=== PATIENT | female | born 1935 | race Caucasian/White ===

== ENCOUNTER 2022-05-20 14:00 | Inpatient (IN) | payer OTHER ==
[~2022-05-20] VITALS: Ht 162.6 cm; Wt 62.1 kg
[2022-05-20] MEDS ORDERED: KAPSPARGO SPRIN25 MG PO (14:50)
[2022-05-20] MEDS ORDERED: ZOLOFT20 MG/1 ML PO (14:50)
[2022-05-20] MEDS ORDERED: LIPITOR40 M1 PO (14:50)
[2022-05-20] MEDS ORDERED: CALCIUM500 M1 PO (14:51)
[2022-05-20] MEDS ORDERED: CHILDREN'S ASPI81 MG PO (14:51)
[2022-05-20] MEDS ORDERED: RENVELA0.8 GM PO (14:51)
== END 2022-05-27 17:29 | disposition home or self-care (01) | DRG 812 ==
LOC: ER 14:00 → MEDJ 05-21 00:50
PROVIDERS: ADMIT Internal Medicine; ATTEND Internal Medicine
PROC: BW21Y0Z Computerized Tomography (CT Scan) of Abdomen and Pelvis using Other Contrast, Unenhanced and Enhanced (ICD-10-PCS; 2022-05-20)
PROC: 5A1D70Z Performance of Urinary Filtration, Intermittent, Less than 6 Hours Per Day (ICD-10-PCS; 2022-05-21)
PROC: 5A1D70Z Performance of Urinary Filtration, Intermittent, Less than 6 Hours Per Day (ICD-10-PCS; 2022-05-24)
PROC: 30233N1 Transfusion of Nonautologous Red Blood Cells into Peripheral Vein, Percutaneous Approach (ICD-10-PCS; principal; 2022-05-26)
PROC: 5A1D70Z Performance of Urinary Filtration, Intermittent, Less than 6 Hours Per Day (ICD-10-PCS; 2022-05-26)
DX: D62 Acute posthemorrhagic anemia (principal); K62.5 Hemorrhage of anus and rectum; I12.0 Hypertensive chronic kidney disease with stage 5 chronic kidney disease or end stage renal disease; N18.5 Chronic kidney disease, stage 5; D63.1 Anemia in chronic kidney disease; L89.152 Pressure ulcer of sacral region, stage 2; L95.9 Vasculitis limited to the skin, unspecified; L08.89 Other specified local infections of the skin and subcutaneous tissue; B96.6 Bacteroides fragilis [B. fragilis] as the cause of diseases classified elsewhere; B37.2 Candidiasis of skin and nail; F03.90 Unspecified dementia, unspecified severity, without behavioral disturbance, psychotic disturbance, mood disturbance, and anxiety; Z20.822 Contact with and (suspected) exposure to COVID-19; Z99.2 Dependence on renal dialysis; Z85.038 Personal history of other malignant neoplasm of large intestine

== ENCOUNTER 2022-05-27 22:42 | Inpatient (IN) | payer OTHER ==
[~2022-05-27] VITALS: Ht 152.4 cm; Wt 54.0 kg
[~2022-05-27 22:42] MED LIST: CALCIUM500 M1 PO; CHILDREN'S ASPI81 MG PO; KAPSPARGO SPRIN25 MG PO; LIPITOR40 M1 PO; RENVELA0.8 GM PO; ZOLOFT20 MG/1 ML PO
== END 2022-06-15 17:04 | disposition home or self-care (01) | DRG 291 ==
LOC: ER 22:42 → ICU-2 05-28 13:23 → MEDJ 05-28 13:23 → SEC-K 05-30 17:17 → MEDI 05-30 22:20 → MEDJ 05-31 08:37
PROVIDERS: ADMIT Internal Medicine; ATTEND Internal Medicine
PROC: 02HV33Z Insertion of Infusion Device into Superior Vena Cava, Percutaneous Approach (ICD-10-PCS; principal; 2022-05-28)
PROC: 5A1D70Z Performance of Urinary Filtration, Intermittent, Less than 6 Hours Per Day (ICD-10-PCS; 2022-05-29)
PROC: 4A12X4Z Monitoring of Cardiac Electrical Activity, External Approach (ICD-10-PCS; 2022-05-31)
PROC: 5A1D70Z Performance of Urinary Filtration, Intermittent, Less than 6 Hours Per Day (ICD-10-PCS; 2022-06-01)
PROC: 5A1D70Z Performance of Urinary Filtration, Intermittent, Less than 6 Hours Per Day (ICD-10-PCS; 2022-06-03)
PROC: B24BZZZ Ultrasonography of Heart with Aorta (ICD-10-PCS; 2022-06-05)
PROC: 5A1D70Z Performance of Urinary Filtration, Intermittent, Less than 6 Hours Per Day (ICD-10-PCS; 2022-06-05)
PROC: 5A1D70Z Performance of Urinary Filtration, Intermittent, Less than 6 Hours Per Day (ICD-10-PCS; 2022-06-08)
PROC: 5A1D70Z Performance of Urinary Filtration, Intermittent, Less than 6 Hours Per Day (ICD-10-PCS; 2022-06-10)
PROC: 5A1D70Z Performance of Urinary Filtration, Intermittent, Less than 6 Hours Per Day (ICD-10-PCS; 2022-06-12)
PROC: 5A1D70Z Performance of Urinary Filtration, Intermittent, Less than 6 Hours Per Day (ICD-10-PCS; 2022-06-14)
DX: I13.2 Hypertensive heart and chronic kidney disease with heart failure and with stage 5 chronic kidney disease, or end stage renal disease (principal); I50.23 Acute on chronic systolic (congestive) heart failure; N18.6 End stage renal disease; J96.01 Acute respiratory failure with hypoxia; C18.9 Malignant neoplasm of colon, unspecified; K62.5 Hemorrhage of anus and rectum; C79.51 Secondary malignant neoplasm of bone; E87.79 Other fluid overload; L89.159 Pressure ulcer of sacral region, unspecified stage; L95.9 Vasculitis limited to the skin, unspecified; E87.5 Hyperkalemia; Z99.2 Dependence on renal dialysis; I48.91 Unspecified atrial fibrillation; K62.89 Other specified diseases of anus and rectum; D63.1 Anemia in chronic kidney disease; Z20.822 Contact with and (suspected) exposure to COVID-19; G30.9 Alzheimer's disease, unspecified; F02.80 Dementia in other diseases classified elsewhere, unspecified severity, without behavioral disturbance, psychotic disturbance, mood disturbance, and anxiety; Z99.89 Dependence on other enabling machines and devices; J44.9 Chronic obstructive pulmonary disease, unspecified

== ENCOUNTER 2022-06-21 12:11 | Inpatient (IN) | payer OTHER ==
[~2022-06-21] VITALS: Ht 167.6 cm; Wt 54.0 kg
== END 2022-06-26 12:34 | disposition left against medical advice (07) | DRG 291 ==
LOC: ER 12:11 → MEDJ 17:34
PROVIDERS: ADMIT Internal Medicine; ATTEND Internal Medicine
PROC: 4A12X4Z Monitoring of Cardiac Electrical Activity, External Approach (ICD-10-PCS; principal; 2022-06-21)
PROC: 5A1D70Z Performance of Urinary Filtration, Intermittent, Less than 6 Hours Per Day (ICD-10-PCS; 2022-06-22)
PROC: 5A1D70Z Performance of Urinary Filtration, Intermittent, Less than 6 Hours Per Day (ICD-10-PCS; 2022-06-23)
PROC: 5A1D70Z Performance of Urinary Filtration, Intermittent, Less than 6 Hours Per Day (ICD-10-PCS; 2022-06-25)
DX: I13.2 Hypertensive heart and chronic kidney disease with heart failure and with stage 5 chronic kidney disease, or end stage renal disease (principal); N18.6 End stage renal disease; I50.1 Left ventricular failure, unspecified; G30.9 Alzheimer's disease, unspecified; F02.80 Dementia in other diseases classified elsewhere, unspecified severity, without behavioral disturbance, psychotic disturbance, mood disturbance, and anxiety; I25.10 Atherosclerotic heart disease of native coronary artery without angina pectoris; Z20.822 Contact with and (suspected) exposure to COVID-19; I48.91 Unspecified atrial fibrillation